=== PATIENT | male | born 1975 | race Caucasian/White ===

== ENCOUNTER 2016-12-03 20:27 | Emergency (ER) | payer OTHER ==
--- NOTE | 2016-12-03 21:30 | ED ORDER SUMMARY ---
..... Patient: URBAN PUGH OrderSheet [facility] VisitID: [id number] [address] [place] [address] 41y, M Registration Date/Time: 12/03/2016 ORDER SHEET Weight: 95.2 kg Allergies: No Known Drug Allergy GENERAL ORDERS: Foot 3V Left Urgent (20:47 12/03/2016 Clark per protocol) (Ack 20:48 NHouse ER Tech1) (21:01 Cindympbell) Crutches (21:16 12/03/2016 Deondre CHOUDHARY) (Ack 21:26 AMcQuoid ER Tech1) (21:44 Clark) Post-op Shoe (21:27 12/03/2016 Deondre CHOUDHARY) (21:44 Clark) MEDICATION ORDERS: IV FLUIDS: ORDER SHEET NOTES: [Electronically signed by Darcy Delgado (21:45 12/03/2016)] [Electronically signed by Lesly Kuo MD (13:31 12/04/2016)] [Electronically signed by Nikki Simpson R.N. (10:44 12/09/2016)] [Electronically locked/signed by Darcy Delgado (21:45 12/03/2016)]
--- NOTE | 2016-12-03 21:30 | ED CLINICAL REPORT ---
Clinical Report - Physicians/Mid Levels [facility] [address] [place] [address] 12/03/2016 20:32 Patient: URBAN PUGH Time Seen: 20:49. Arrived- By private vehicle. Historian- patient. HISTORY OF PRESENT ILLNESS Chief Complaint: Injury to the left ankle. The injury happened just prior to arrival. The patient sustained a twisting injury. Occurred on a street. Patient is experiencing moderate pain. No other injury. REVIEW OF SYSTEMS The patient complains of pain on weight bearing. He has had new onset of swelling of the left foot (mild). No tingling, weakness, numbness, suspected foreign body or skin laceration. All systems otherwise negative, except as recorded above. PAST HISTORY Problems: Asthma. Hypertension. Sleep Apnea. Additional Surgeries: Vasectomy. Medications: Advair Diskus Inhalation. Hydrochlorothiazide Oral. Lisinopril Oral. Allergies: No Known Drug Allergy. SOCIAL HISTORY Never smoker. No alcohol use or drug use. ADDITIONAL NOTES The nursing notes have been reviewed. PHYSICAL EXAM Vital Signs: 12/03/2016 20:42 BP: 146/97. HR: 100. RR: 16. O2 saturation: 96%. Temp: 98.0 F. Have been reviewed. Appearance: Alert. Oriented X3. No acute distress. Head: Head atraumatic. Eyes: Eyes normal inspection. ENT: Nose normal. Neck: No decreased ROM in the neck. CVS: Pulses normal. Respiratory: No respiratory distress. Back: ROM normal. Skin: Skin intact. Skin warm and dry. Extremities: Left foot: moderate tenderness of the proximal dorsal aspect of the foot. Limited weight bearing secondary to pain. Neurovascular intact distally. No erythema, swelling, laceration, abrasion or ecchymosis. No puncture wound, foreign body or deformity. No ankle injury. Foot and ankle exam otherwise negative. Extremities otherwise negative. Neuro, Vascular and Tendons: Vascular status intact. Sensation intact. Motor intact. Tendon function intact. Gait: Gait not tested due to pain. Neuro: Oriented X 3. No motor deficit. No sensory deficit. LABS, X-RAYS, AND EKG Lt Foot X-ray: No fracture. Normal alignment. No bony lesion, air in the soft tissue or foreign body. Soft tissues normal. Joint spaces normal. Views: 3 view foot series. Technique: good. The X-rays were independently viewed by me and interpreted contemporaneously by me. Prior films were not available for comparison. Pulse Oximetry: 12/03/2016 20:42 O2 saturation: 96%. (FIO2 - room air). Interpretation: normal. PROGRESS AND PROCEDURES Course of Care: PT declined analgesia in the ED. His x-ray was negative, and I felt he had a sprain. 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 Pt has been fitted with crutches and a post-op shoe in the ED. Patient counseled in person regarding the patient's stable condition, diagnosis and need for follow-up. Concerns were addressed. Old medical records reviewed. Disposition: Discharged. Condition: stable. CLINICAL IMPRESSION Sprain of the left foot. INSTRUCTIONS Apply ice for 20 minutes three times a day as needed and until better. Don't apply ice directly to skin and don't use while asleep. (Your x-rays look good--no broken bones.). Warnings: GENERAL WARNINGS: Return or contact your physician immediately if your condition worsens or changes unexpectedly, if not improving as expected, or if other problems arise. Your Current Medications: CONTINUE TAKING THE FOLLOWING MEDICATIONS: Advair Diskus Inhalation. Hydrochlorothiazide Oral. Lisinopril Oral. Follow-up: Follow up with your doctor as needed. Understanding of the discharge instructions verbalized by patient. (Electronically signed by Lesly Kuo MD 12/04/2016 13:31)
--- NOTE | 2016-12-03 21:30 | ED CLINICAL REPORT ---
Clinical Report - Physicians/Mid Levels [facility] [address] [place] [address] 12/03/2016 20:32 Patient: URBAN PUGH Time Seen: 20:49. Arrived- By private vehicle. Historian- patient. HISTORY OF PRESENT ILLNESS Chief Complaint: Injury to the left ankle. The injury happened just prior to arrival. The patient sustained a twisting injury. Occurred on a street. Patient is experiencing moderate pain. No other injury. REVIEW OF SYSTEMS The patient complains of pain on weight bearing. He has had new onset of swelling of the left foot (mild). No tingling, weakness, numbness, suspected foreign body or skin laceration. All systems otherwise negative, except as recorded above. PAST HISTORY Problems: Asthma. Hypertension. Sleep Apnea. Additional Surgeries: Vasectomy. Medications: Advair Diskus Inhalation. Hydrochlorothiazide Oral. Lisinopril Oral. Allergies: No Known Drug Allergy. SOCIAL HISTORY Never smoker. No alcohol use or drug use. ADDITIONAL NOTES The nursing notes have been reviewed. PHYSICAL EXAM Vital Signs: 12/03/2016 20:42 BP: 146/97. HR: 100. RR: 16. O2 saturation: 96%. Temp: 98.0 F. Have been reviewed. Appearance: Alert. Oriented X3. No acute distress. Head: Head atraumatic. Eyes: Eyes normal inspection. ENT: Nose normal. Neck: No decreased ROM in the neck. CVS: Pulses normal. Respiratory: No respiratory distress. Back: ROM normal. Skin: Skin intact. Skin warm and dry. Extremities: Left foot: moderate tenderness of the proximal dorsal aspect of the foot. Limited weight bearing secondary to pain. Neurovascular intact distally. No erythema, swelling, laceration, abrasion or ecchymosis. No puncture wound, foreign body or deformity. No ankle injury. Foot and ankle exam otherwise negative. Extremities otherwise negative. Neuro, Vascular and Tendons: Vascular status intact. Sensation intact. Motor intact. Tendon function intact. Gait: Gait not tested due to pain. Neuro: Oriented X 3. No motor deficit. No sensory deficit. LABS, X-RAYS, AND EKG Lt Foot X-ray: No fracture. Normal alignment. No bony lesion, air in the soft tissue or foreign body. Soft tissues normal. Joint spaces normal. Views: 3 view foot series. Technique: good. The X-rays were independently viewed by me and interpreted contemporaneously by me. Prior films were not available for comparison. Pulse Oximetry: 12/03/2016 20:42 O2 saturation: 96%. (FIO2 - room air). Interpretation: normal. PROGRESS AND PROCEDURES Course of Care: PT declined analgesia in the ED. His x-ray was negative, and I felt he had a sprain. 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 Pt has been fitted with crutches and a post-op shoe in the ED. Patient counseled in person regarding the patient's stable condition, diagnosis and need for follow-up. Concerns were addressed. Old medical records reviewed. Disposition: Discharged. Condition: stable. CLINICAL IMPRESSION Sprain of the left foot. INSTRUCTIONS Apply ice for 20 minutes three times a day as needed and until better. Don't apply ice directly to skin and don't use while asleep. (Your x-rays look good--no broken bones.). Warnings: GENERAL WARNINGS: Return or contact your physician immediately if your condition worsens or changes unexpectedly, if not improving as expected, or if other problems arise. Your Current Medications: CONTINUE TAKING THE FOLLOWING MEDICATIONS: Advair Diskus Inhalation. Hydrochlorothiazide Oral. Lisinopril Oral. Follow-up: Follow up with your doctor as needed. Understanding of the discharge instructions verbalized by patient. (Electronically signed by Lesly Kuo MD 12/04/2016 13:31)
--- NOTE | 2016-12-03 21:30 | ED NURSING NOTES ---
Clinical Report - Nurses Located Within [facility] [address] [place] [address] 12/03/2016 20:32 Patient: URBAN PUGH TRIAGE Triage time 2039. Acuity: LEVEL 4. Chief Complaint: INJURY TO LEFT FOOT. Alert. No acute distress. --20:45 Darcy Delgado 20:42 12/03/16. BP: 146/97. HR: 100. RR: 16. O2 saturation: 96%. Temp: 98.0 F. Pain level now 6/10. --20:45 Darcy Delgado. Weight: 95.2 kg. Height/Length: 71 inches. BMI: 29.3. --20:42 Darcy Delgado. Medications Lisinopril Oral. --20:43 Darcy Delgado Hydrochlorothiazide Oral. --20:43 Darcy Delgado Advair Diskus Inhalation. --20:43 Darcy Delgado. Allergies No Known Drug Allergy. --20:43 Darcy Delgado. History Arrived by private vehicle. Historian: patient. Accompanied by family. This occurred today. Mechanism of injury: sustained a twisting injury. ( rolled ankle on curb). He has had trouble walking. 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 SOCIAL HX: Smoker- current status unknown. --20:45 Darcy Delgado. PROBLEMS: Asthma. Hypertension. Sleep Apnea. --20:44 Darcy Delgado. ADDITIONAL SURGERIES: Vasectomy. --20:44 Darcy Delgado. Interventions ID band on patient. To treatment room. --20:45 Darcy Delgado. PHYSICAL ASSESSMENT To room via wheelchair. GENERAL / NEURO / PSYCH: Oriented X 4. Alert. Appears in no acute distress. EXTREMITIES: Capillary refill is less than 2 seconds in the extremities. Extremity pulses are within normal limits. Neuro-vascular status intact to the extremity. Left foot: tenderness and swelling of the medial and lateral aspect of the mid foot. Limited weight bearing secondary to pain. SKIN: Skin intact. Skin is warm and dry. --20:46 Darcy Delgado. NURSING PROGRESS NOTES Cold pack applied. Extremity elevated. Call light placed in reach. Bed placed in lowest position. Brakes of bed on. Patient ready for evaluation- chart flagged and ED physician notified. --20:48 Darcy Delgado 21:30. Ortho shoe applied. Patient fit with crutches. --21:46 McQuoid, Greta, ER Tech1. DISPOSITION / DISCHARGE Condition at departure: unchanged and stable. No learning barriers present. Discharge instructions provided and reviewed with the patient. Patient verbalized understanding. Written instructions provided in Wolof. The patient was discharged by the physician. He was discharged home and accompanied by spouse. He left the Emergency Department on crutches and via private vehicle. Spouse driving. --21:44 Darcy Delgado Departure time: 2144. --21:45 Darcy Delgado. Locked/Released at 12/09/2016 10:44 by Nikki Simpson R.N.
--- NOTE | 2016-12-03 21:30 | ED ORDER SUMMARY ---
..... Patient: URBAN PUGH OrderSheet [facility] VisitID: [id number] [address] [place] [address] 41y, M Registration Date/Time: 12/03/2016 ORDER SHEET Weight: 95.2 kg Allergies: No Known Drug Allergy GENERAL ORDERS: Foot 3V Left Urgent (20:47 12/03/2016 Clark per protocol) (Ack 20:48 NHouse ER Tech1) (21:01 Cindympbell) Crutches (21:16 12/03/2016 Deondre CHOUDHARY) (Ack 21:26 AMcQuoid ER Tech1) (21:44 Clark) Post-op Shoe (21:27 12/03/2016 Deondre CHOUDHARY) (21:44 Clark) MEDICATION ORDERS: IV FLUIDS: ORDER SHEET NOTES: [Electronically signed by Darcy Delgado (21:45 12/03/2016)] [Electronically signed by Lesly Kuo MD (13:31 12/04/2016)] [Electronically signed by Nikki Simpson R.N. (10:44 12/09/2016)] [Electronically locked/signed by Darcy Delgado (21:45 12/03/2016)]
--- NOTE | 2016-12-03 21:30 | ED NURSING NOTES ---
Clinical Report - Nurses [facility] [address] [place] [address] 12/03/2016 20:32 Patient: URBAN PUGH TRIAGE Triage time 2039. Acuity: LEVEL 4. Chief Complaint: INJURY TO LEFT FOOT. Alert. No acute distress. --20:45 Darcy Delgado 20:42 12/03/16. BP: 146/97. HR: 100. RR: 16. O2 saturation: 96%. Temp: 98.0 F. Pain level now 6/10. --20:45 Darcy Delgado. Weight: 95.2 kg. Height/Length: 71 inches. BMI: 29.3. --20:42 Darcy Delgado. Medications Lisinopril Oral. --20:43 Darcy Delgado Hydrochlorothiazide Oral. --20:43 Darcy Delgado Advair Diskus Inhalation. --20:43 Darcy Delgado. Allergies No Known Drug Allergy. --20:43 Darcy Delgado. History Arrived by private vehicle. Historian: patient. Accompanied by family. This occurred today. Mechanism of injury: sustained a twisting injury. ( rolled ankle on curb). He has had trouble walking. 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 SOCIAL HX: Smoker- current status unknown. --20:45 Darcy Delgado. PROBLEMS: Asthma. Hypertension. Sleep Apnea. --20:44 Darcy Delgado. ADDITIONAL SURGERIES: Vasectomy. --20:44 Darcy Delgado. Interventions ID band on patient. To treatment room. --20:45 Darcy Delgado. PHYSICAL ASSESSMENT To room via wheelchair. GENERAL / NEURO / PSYCH: Oriented X 4. Alert. Appears in no acute distress. EXTREMITIES: Capillary refill is less than 2 seconds in the extremities. Extremity pulses are within normal limits. Neuro-vascular status intact to the extremity. Left foot: tenderness and swelling of the medial and lateral aspect of the mid foot. Limited weight bearing secondary to pain. SKIN: Skin intact. Skin is warm and dry. --20:46 Darcy Delgado. NURSING PROGRESS NOTES Cold pack applied. Extremity elevated. Call light placed in reach. Bed placed in lowest position. Brakes of bed on. Patient ready for evaluation- chart flagged and ED physician notified. --20:48 Darcy Delgado 21:30. Ortho shoe applied. Patient fit with crutches. --21:46 McQuoid, Greta, ER Tech1. DISPOSITION / DISCHARGE Condition at departure: unchanged and stable. No learning barriers present. Discharge instructions provided and reviewed with the patient. Patient verbalized understanding. Written instructions provided in Belarusian. The patient was discharged by the physician. He was discharged home and accompanied by spouse. He left the Emergency Department on crutches and via private vehicle. Spouse driving. --21:44 Darcy Delgado Departure time: 2144. --21:45 Darcy Delgado. Locked/Released at 12/09/2016 10:44 by Nikki Simpson R.N.
--- NOTE | 2016-12-03 22:36 | DIAGNOSTIC IMAGING REPORT ---
PROCEDURE: XR FOOT 3 VIEWS - LEFT INDICATION: TRAUMA/INJURY, initial encounter TECHNIQUE: Four views COMPARISON: None. FINDINGS: Osseous structures, joint spaces and soft tissues are normal. IMPRESSION: 1. Normal left foot.
--- NOTE | 2016-12-09 10:44 | ED MAR SUMMARY ---
..... Medication Administration Record [facility] [address] [place] [address] Patient: URBAN PUGH Visit ID: [id number] 41y, M Weight: 95.2 kg Height/Length: 71 in BMI: 29.3 ALLERGIES: No Known Drug Allergy
--- NOTE | 2016-12-09 10:44 | ED MED RECONCILIATION SUMMARY ---
Patient: URBAN PUGH Medication Reconciliation Report [facility] VisitID: [id number] [address] [place] [address] 41y, M Registration Date/Time: 12/03/2016 Weight: 95.2 kg Height/Length: 71 in. BMI: 29.3 ALLERGIES: No Known Drug Allergy The patient's Home Medications are listed below: CONTINUE TAKING THE FOLLOWING MEDICATIONS: Advair Diskus Inhalation Hydrochlorothiazide Oral Lisinopril Oral The source(s) of the original Home Medication information: Not obtained. The following Medications were given to the patient in the Emergency Department: None. The following Medications were prescribed to the patient: None.
--- NOTE | 2016-12-09 10:44 | ED MAR SUMMARY ---
..... Medication Administration Record [facility] [address] [place] [address] Patient: URBAN PUGH Visit ID: [id number] 41y, M Weight: 95.2 kg Height/Length: 71 in BMI: 29.3 ALLERGIES: No Known Drug Allergy
--- NOTE | 2016-12-09 10:44 | ED MED RECONCILIATION SUMMARY ---
Patient: URBAN PUGH Medication Reconciliation Report [facility] VisitID: [id number] [address] [place] [address] 41y, M Registration Date/Time: 12/03/2016 Weight: 95.2 kg Height/Length: 71 in. BMI: 29.3 ALLERGIES: No Known Drug Allergy The patient's Home Medications are listed below: CONTINUE TAKING THE FOLLOWING MEDICATIONS: Advair Diskus Inhalation Hydrochlorothiazide Oral Lisinopril Oral The source(s) of the original Home Medication information: Not obtained. The following Medications were given to the patient in the Emergency Department: None. The following Medications were prescribed to the patient: None.
--- NOTE | 2016-12-09 10:44 | ED DISCHARGE INSTRUCTIONS ---
Patient: URBAN PUGH General Instructions [facility] VisitID: [id number] [place] [address] 41y, M Registration Date/Time: 12/03/2016 Sprain of the left foot. INSTRUCTIONS Apply ice for 20 minutes three times a day as needed and until better. Don't apply ice directly to skin and don't use while asleep. (Your x-rays look good--no broken bones.). Warnings: GENERAL WARNINGS: Return or contact your physician immediately if your condition worsens or changes unexpectedly, if not improving as expected, or if other problems arise. Your Current Medications: CONTINUE TAKING THE FOLLOWING MEDICATIONS: Advair Diskus Inhalation. Hydrochlorothiazide Oral. Lisinopril Oral. Follow-up: Follow up with your doctor as needed. Understanding of the discharge instructions verbalized by patient. ADDITIONAL INFORMATION Sprain, Foot A sprain is a stretching or tearing of the ligaments that hold a joint together. There are no broken bones. Sprains take from 36 weeks to heal. A sprain may be treated with a splint, walking cast or special boot. Mild sprains may not require any additional support. Home care The following guidelines will help you care for your injury at home: Keep your leg elevated when sitting or lying down. This is very important during the first 48 hours to reduce swelling. Stay off the injured foot as much as possible until you can walk on it without pain. If needed, you may use crutches during the first week for this purpose. (Crutches can be rented at many pharmacies or surgical/orthopedic supply stores). You may be given a cast shoe to wear to prevent movement in your foot. If not, you can use a sandal or any shoe that does not put pressure on the injured area until the swelling and pain go away. If using a sandal, be careful not to strike your foot against anything, since another injury could make the sprain worse. Apply an ice pack (ice cubes in a plastic bag, wrapped in a towel) over the injured area for 20 minutes every 12 hours the first day. You should continue with ice packs 34 times a day for the next two days. Continue the use of ice packs for relief of pain and swelling as needed. You may use acetaminophen or ibuprofen to control pain, unless another medicine was prescribed. If you have chronic liver or kidney disease or ever had a stomach ulcer or GI bleeding, talk with your doctor before using these medicines. If you were given a splint or cast, keep it dry. Bathe with your splint/cast well out of the water, protected with a large plastic bag, rubber-banded at the top end. If a fiberglass splint or cast gets wet, you can dry it with a hair-dryer. You may return to sports after healing, when you can run without pain. Follow-up care Follow up with your doctor as directed. Any X-rays you had today dont show any broken bones, breaks, or fractures. Sometimes fractures dont show up on the first X-ray. Bruises and sprains can sometimes hurt as much as a fracture. These injuries can take time to heal completely. If your symptoms dont improve or they get worse, talk with your doctor. You may need a repeat X-ray. When to seek medical care Get prompt medical attention if any of the following occur: The plaster cast or splint gets wet or soft The fiberglass cast or splint gets wet and does not dry for 24 hours Pain or swelling increases, or redness appears Toes become cold, blue, numb, or tingly You have been given the following additional information: Sprain, Foot (Electronically signed by Lesly Kuo MD 12/04/2016 13:31)
== END 2016-12-03 21:45 | disposition home or self-care (01) ==
LOC: ED SRH 20:27
DX: S93.602A Unspecified sprain of left foot, initial encounter (principal); X50.1XXA Overexertion from prolonged static or awkward postures, initial encounter; Y93.9 Activity, unspecified; Y92.410 Unspecified street and highway as the place of occurrence of the external cause; Y99.9 Unspecified external cause status; I10 Essential (primary) hypertension; Z79.899 Other long term (current) drug therapy